=== PATIENT | female | born 1960 | race Caucasian/White ===

== ENCOUNTER → 2018-04-03 | Day surgery (SDC) | payer BC ==
[~2018-04-03] MED LIST: Lactated Ringers 1,000 ML IV SCH; Propofol 200 MG/20 ML SDV IV ONE
[2018-04-03 10:28] VITALS: BP 114/60
--- NOTE | 2018-04-03 12:27 | OR ---
DATE OF OPERATION: 04/03/2018 PREOPERATIVE DIAGNOSIS: HEMATOCHEZIA. POSTOPERATIVE DIAGNOSIS: HEMATOCHEZIA. SURGEON: Yoni Bonilla MD PROCEDURE: FULL-LENGTH COLONOSCOPY. ANESTHESIA: CIRCULATION CLERK due to obesity and coronary artery disease. COMPLICATIONS: None. SPECIMEN: None. FINDINGS: Normal full length colonoscopy with internal hemorrhoids. RECOMMENDATIONS: Follow up colonoscopy every 5 years. INDICATIONS: The patient has been having some issues with hematochezia. We recommended colonoscopy. DESCRIPTION OF PROCEDURE: The patient was prepped and draped, placed in the left lateral decubitus position. A lubricated Olympus colonoscope was inserted and easily advanced to the cecum. Direct visualization of the ileocecal valve and appendiceal orifice was accomplished. Bowel prep was adequate. There was a lot of stool present in the colon, but most of this was able to be suctioned. Upon withdrawal, throughout the entire length of the colon, I could find no signs of polyps, mass, ulceration or bleeding sites. No vascular abnormalities or signs of colitis. There were no diverticular signs of diverticular disease. The rectal vault was benign. Retroflexion of scope in the rectum showed some prominent vascular tissue in the perianal region, otherwise benign. Air was suctioned. Scope removed without complication. JULIANNE/ALFREDO /[id number]
== END ==
LOC: CC.SDS 08:28
PROVIDERS: ATTEND Family Medicine
DX: K64.8 Other hemorrhoids (principal); E11.9 Type 2 diabetes mellitus without complications; I25.10 Atherosclerotic heart disease of native coronary artery without angina pectoris; G47.30 Sleep apnea, unspecified; E66.01 Morbid (severe) obesity due to excess calories; Z68.41 Body mass index [BMI] 40.0-44.9, adult; Z79.4 Long term (current) use of insulin; Z79.82 Long term (current) use of aspirin; Z79.899 Other long term (current) drug therapy; Z88.2 Allergy status to sulfonamides
CPT/HCPCS: 45378; 93005; J7120; J2704

== ENCOUNTER 2024-01-22 06:34 | Day surgery (SDC) | payer MEDICARE, BC ==
[2024-01-22] MEDS: Lactated Ringers 1,000 ML IV SCH (07:15)
[2024-01-22] MEDS: Cyclopentolat/Tropic/Phenyleph 1 ML Ophth Drop SDV EYERT SCH (07:17)
[2024-01-22] MEDS ORDERED: Midazolam 1 MG/ML 2 ML SDV ONE (07:56)
[2024-01-22] MEDS: Lidocaine 1% PF 2 ML SDV INJECT ONE (08:07)
[2024-01-22] MEDS: Povidone-Iodine 5% Sterile Ophth Soln 30 ML Bottle EYERT ONE (08:07)
[2024-01-22] MEDS: Brimonidine 0.2% Ophth Soln 5 ML Bottle EYERT ONE (08:07)
[2024-01-22] MEDS: Phenyleprhine/Ketorolac 4 ML Vial OP ONE (08:07)
[2024-01-22] MEDS: MOXIFLOXACIN PF in BSS 1 MG/ML VIAL IO ONE (08:07)
[2024-01-22] MEDS: Tetracaine HCl/PF 0.5% 4 ML Bottle EYERT ONE (08:07)
[2024-01-22 12:28] VITALS: BP 128/58; PULSE 69
== END 2024-01-22 09:18 | disposition home or self-care (01) ==
LOC: CC.SDS 06:34
PROVIDERS: ATTEND Ophthalmology
DX: E11.36 Type 2 diabetes mellitus with diabetic cataract (principal); H25.811 Combined forms of age-related cataract, right eye; E66.9 Obesity, unspecified; G47.33 Obstructive sleep apnea (adult) (pediatric); I10 Essential (primary) hypertension; Z79.84 Long term (current) use of oral hypoglycemic drugs; Z79.4 Long term (current) use of insulin; Z79.899 Other long term (current) drug therapy; Z88.2 Allergy status to sulfonamides; Z68.41 Body mass index [BMI] 40.0-44.9, adult
CPT/HCPCS: J1097; J2250; J3490; J7120

== ENCOUNTER 2024-03-01 06:52 | Day surgery (SDC) | payer MEDICARE, BC ==
[2024-03-01] MEDS: Lactated Ringers 1,000 ML IV SCH (07:26)
[2024-03-01] MEDS: Cyclopentolate 1% Opth Soln 2 ML Bottle EYELF SCH (07:27)
[2024-03-01] MEDS: Tropicamide 1% Ophth Soln 3 ML Bottle EYELF SCH (07:29)
[2024-03-01] MEDS: Phenylephrine 2.5% Ophth Soln 2 ML Bot EYELF SCH (07:50)
[2024-03-01] MEDS ORDERED: Midazolam 1 MG/ML 2 ML SDV ONE (08:20)
[2024-03-01] MEDS: Tetracaine HCl/PF 0.5% 4 ML Bottle EYELF SCH (08:27)
[2024-03-01] MEDS: Povidone-Iodine 5% Sterile Ophth Soln 30 ML Bottle EYELF SCH (08:29)
[2024-03-01] MEDS: Lidocaine 1% PF 2 ML SDV INJECT SCH (08:29)
[2024-03-01] MEDS: Phenyleprhine/Ketorolac 4 ML Vial OP SCH (08:29)
[2024-03-01] MEDS: MOXIFLOXACIN PF in BSS 1 MG/ML VIAL IO SCH (08:29)
[2024-03-01] MEDS: Brimonidine 0.2% Ophth Soln 5 ML Bottle EYELF SCH (08:41)
[2024-03-01 09:23] VITALS: BP 117/49; PULSE 70
== END 2024-03-01 09:30 | disposition home or self-care (01) ==
LOC: CC.SDS 06:52
PROVIDERS: ATTEND Ophthalmology
DX: E11.36 Type 2 diabetes mellitus with diabetic cataract (principal); H26.8 Other specified cataract; I10 Essential (primary) hypertension; E78.5 Hyperlipidemia, unspecified; I25.10 Atherosclerotic heart disease of native coronary artery without angina pectoris; E66.01 Morbid (severe) obesity due to excess calories; Z68.41 Body mass index [BMI] 40.0-44.9, adult; Z79.84 Long term (current) use of oral hypoglycemic drugs; Z79.899 Other long term (current) drug therapy
CPT/HCPCS: A9270-GY; J1097; J2250; J3490; J7120; V2632